=== PATIENT | male | born 1940 | race African-American/Black ===

== ENCOUNTER 2018-01-07 11:03 | Outpatient (CLI) | payer MEDICARE, MEDICAID | END 2018-01-07 11:04 | disposition home or self-care (01) | LOC: BICRAD 11:03 | PROVIDERS: ATTEND Nurse Practitioner Family | DX: M25.512 Pain in left shoulder (principal) ==

== ENCOUNTER 2019-12-10 13:14 | Outpatient (CLI) | payer MEDICARE, MEDICAID ==
--- NOTE | 2019-12-10 14:19 | BD ---
DEXA BONE DENSITY SCAN: DATE: 12/10/2019. COMPARISON: None. HISTORY: 79-year-old male undergoing assessment for osteopenia, history of rheumatoid arthritis. FINDINGS: Lumbar Spine: BMD (g/cm2) L1 1.258 T-Score: 1.7 L2 1.242 T-Score: 1.3 L3 1.333 T-Score: 2.1 L4 1.403 T-Score: 2.8 L1-L4 1.310 T-Score: 2.0 Femoral Neck: 0.924 T-Score: 0.0 Total Femur: 1.173 T-Score: 0.9 The FRAX-WHO fracture risk assessment tool is not reported as T-scores or are at or above -1.0 IMPRESSION: Normal bone mineral density examination. Transcribed Date/Time: 12/10/2019 2:42 PM
--- NOTE | 2019-12-10 14:28 | RAD ---
LEFT HIP TWO VIEWS: 12/10/19 HISTORY: Hip pain for the past five days. Minimal osteophytic change along the acetabulum without any significant joint space narrowing. Vascul ar calcifications are present. No fractures. Arthritic changes of the lower lumbar spine is seen. IMPRESSION: Minimal arthritic changes of the hip. POS: TPC
--- NOTE | 2019-12-10 14:30 | RAD ---
AP PELVIS: 12/10/19 HISTORY: Pelvic and left hip pain for the past five days. No history of fracture. 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 Pelvic ring is intact. F airly minimal arthritic changes of both hips. Vascular calcifications and prostatic calcifications ar e noted. IMPRESSION: No acute findings. 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 POS: TPC
--- NOTE | 2019-12-10 14:34 | RAD ---
PA AND LATERAL VIEWS OF THE CHEST: 12/10/19 HISTORY: Hypertension. FINDINGS: The heart size is normal. The aorta is tortuous. There is a left sided pacemaker. The lungs are well expanded without lobar consolidation, pneumothoraces, or pleural effusions. No acute osseous abnormal ities are seen. IMPRESSION: No radiographic evidence of acute cardiopulmonary process. POS: OFF
== END 2019-12-10 13:15 | disposition home or self-care (01) ==
LOC: BICULT 13:14 → BICMAMMO 13:15
PROVIDERS: ATTEND Family Medicine
DX: M85.80 Other specified disorders of bone density and structure, unspecified site (principal); I25.10 Atherosclerotic heart disease of native coronary artery without angina pectoris; I48.20 Chronic atrial fibrillation, unspecified; M16.0 Bilateral primary osteoarthritis of hip; M48.8X6 Other specified spondylopathies, lumbar region; M25.552 Pain in left hip; R16.0 Hepatomegaly, not elsewhere classified
CPT/HCPCS: 71046; 72170; 77080

== ENCOUNTER 2020-02-29 15:16 | Emergency (ER) | payer MEDICARE, MEDICAID | END 2020-02-29 16:06 | disposition home or self-care (01) | LOC: ERS 15:16 | DX: R50.9 Fever, unspecified (principal); E11.9 Type 2 diabetes mellitus without complications; I10 Essential (primary) hypertension; Z79.899 Other long term (current) drug therapy | CPT/HCPCS: 51798; 99214; 99283; G0463 ==

== ENCOUNTER 2020-03-24 18:01 | Emergency (ER) | payer MEDICARE, OTHER ==
[2020-03-24 19:43] LABS: Bilirubin Negative (Negative); Blood, Urine 3+ (Negative); Clarity Extra Turbid (Clear); Glucose, Urine (Dipstick) Normal (Negative); Leukocyte 25 Leu/uL (Negative); Nitrite Negative (Negative); Protein, Urine (Dipstick) 100 mg/dL (Neg-Trace); RBC/HPF Greater than 50 HPF (0-3); Squamous Epithelial None Seen HPF (0-3); Urobilinogen Normal mg/dL (Less than 2)
[2020-03-24 19:51] LABS: Bacteria/HPF None Seen HPF (None Seen)
== END 2020-03-24 20:11 | disposition home or self-care (01) ==
LOC: ERS 18:01
DX: T83.091A Other mechanical complication of indwelling urethral catheter, initial encounter (principal); E11.9 Type 2 diabetes mellitus without complications; I10 Essential (primary) hypertension; Z79.899 Other long term (current) drug therapy
CPT/HCPCS: 51702; 81003; 81015

== ENCOUNTER 2020-04-15 08:05 | Outpatient (CLI) | payer MEDICARE, MEDICAID, OTHER ==
[2020-04-15 18:07] LABS: Hemoglobin 11.6 g/dL (14.0-18.0); Mean Corpuscular Hemoglobin 21.4 pg (27.0-31.0); Mean Corpuscular Volume 69.3 fL (78.0-98.0); Mean Platelet Volume 10.1 fL (7.4-10.4); Platelet Count 196 thou/uL (130-400); RBC Distribution Width 15.5 % (11.5-14.5); Red Blood Cell (RBC) Count 5.42 mill/uL (4.70-6.10); White Blood Cell (WBC) Count 7.1 thou/uL (4.8-10.8)
[2020-04-15 18:16] LABS: Bacteria/HPF None Seen HPF (None Seen); Bilirubin Negative (Negative); Blood, Urine 1+ (Negative); Calcium Oxalate Crystals 3+ HPF (None Seen); Clarity Clear (Clear); Glucose, Urine (Dipstick) Normal (Negative); Leukocyte 500 Leu/uL (Negative); Nitrite Negative (Negative); Protein, Urine (Dipstick) 20 mg/dL (Neg-Trace); Squamous Epithelial 0-3 HPF (0-3); Urobilinogen Normal mg/dL (Less than 2); WBC/HPF 21-50 HPF (0-3)
[2020-04-15 18:18] LABS: Anion Gap 9 mmol/L (10-20); BUN (Urea Nitrogen) 15 mg/dL (8.4-25.7); Calc. Creatinine Clearance 0 mL/min (70-130); Calcium 9.8 mg/dL (7.8-10.44); Carbon Dioxide 24 mmol/L (23-31); Chloride 109 mmol/L (98-107); Estimated GFR-MDRD 72; Glucose 87 mg/dL (83-110); Potassium 3.8 mmol/L (3.5-5.1); Sodium 138 mmol/L (136-145)
[2020-04-16 11:34] LABS: SARS-CoV-2 MS2 Positive; SARS-CoV-2 N Gene Negative; SARS-CoV-2 S Gene Negative; SARS-CoV-2 orf1ab Negative
== END 2020-04-15 08:06 | disposition home or self-care (01) ==
LOC: LABBT 08:05
PROVIDERS: ATTEND Urology
DX: Z01.812 Encounter for preprocedural laboratory examination (principal); Z11.59 Encounter for screening for other viral diseases; N40.0 Benign prostatic hyperplasia without lower urinary tract symptoms
CPT/HCPCS: 80048; 81001; 85027; 87086; U0003; 87635

== ENCOUNTER 2020-04-19 09:21 | Observation (INO) | payer MEDICARE, MEDICAID ==
[2020-04-14 13:41] VITALS: BMI 31.0
[2020-04-19] MEDS ORDERED: Levofloxacin 500 mg/D5W 100 ml Premix Bag ONE (10:13)
[2020-04-19] MEDS ORDERED: Fentanyl 100 MCG/2 ML VIAL ONE (10:46)
[2020-04-19] MEDS ORDERED: Ondansetron PF 4 MG/2 ML Vial ONE (11:03)
[2020-04-19] MEDS ORDERED: Lidocaine 1% PF 5 ML VIAL ONE (11:03)
[2020-04-19] MEDS ORDERED: PROPOFOL 200 MG/20 ML VIAL ONE (11:03)
[2020-04-19] MEDS ORDERED: Glycopyrrolate 0.2 MG/ML 5 ML SYRINGE ONE (11:03)
[2020-04-19] MEDS ORDERED: Rocuronium Bromide 10 MG/ML (10ML VIAL) ONE (11:03)
[2020-04-19] MEDS ORDERED: Succinylcholine Chloride 20 MG/ML 10 ml SYRINGE FS ONE (11:03)
[2020-04-19] MEDS ORDERED: Meperidine HCl/PF 25 MG/ML VIAL ONE (12:49)
[2020-04-19] MEDS ORDERED: Ondansetron PF 4 MG/2 ML Vial IVP PRN (13:29)
[2020-04-19] MEDS ORDERED: Acetaminophen 500 MG TAB PO PRN (13:29)
[2020-04-19] MEDS ORDERED: hydrALAZINE 20 MG/ML VIAL SLOW IVP PRN (13:29)
[2020-04-19] MEDS ORDERED: HYDROcodone/Acetaminophen 5/325 mg Tablet PO PRN (13:29)
[2020-04-19] MEDS ORDERED: diphenhydrAMINE 50 MG/ML VIAL IVP PRN (13:29)
[2020-04-19] MEDS ORDERED: Morphine 2 MG/ML SYRINGE SLOW IVP PRN (13:29)
[2020-04-19] MEDS ORDERED: Zolpidem Tartrate 5 MG TAB PO PRN (13:29)
--- NOTE | 2020-04-19 14:54 | OP ---
DATE OF PROCEDURE: 04/19/2020 PREOPERATIVE DIAGNOSIS: Enlarged prostate with lower urinary tract symptoms. POSTOPERATIVE DIAGNOSIS: Enlarged prostate with lower urinary tract symptoms. PROCEDURE PERFORMED: Transurethral resection of the prostate. ANESTHESIA: General. COMPLICATIONS: None. ESTIMATED BLOOD LOSS: Minimal. SPECIMENS: Prostate chips. DESCRIPTION OF PROCEDURE: After informed consent, the patient was taken to the operating room, transferred to the table under his own power. Anesthesia was established. A time-out was performed, showing the correct patient, site, and procedure. Preoperative antibiotics were administered. He was prepped and draped in the lithotomy position. I began by inserting the rigid resectoscope through the urethra noting normal course and caliber of the urethra down to the prostate noting large coapting lateral lobes and a high bladder neck. The bladder was systematically examined noting no mucosal abnormalities with [id number] trabeculation. Both ureters were normal in appearance. I began by resecting the bladder neck and posterior midline portion of the prostate from the bladder neck all the way back to the verumontanum. I then resected the left lobe from about 2 o'clock down to the midline and then the right lobe from 10 o'clock to midline. Finally, the anterior resecting tissue was removed. The Weimob evacuator was used to retrieve all prostate chips. The bladder was then reinspected noting no further prostate chips, and both ureters normal in appearance, uninvolved with resection. The prostatic fossa was reexamined and meticulous hemostasis was achieved. The scope was then withdrawn and a 22-German three-way catheter placed with 30 mL instilled in the balloon. This was connected to continuous irrigation, which was running clear at the end of the case. He was then awoken from anesthesia, transferred back to his hospital bed and taken to the PACU in stable condition, where he will be admitted overnight. Job ID: [id number]
[2020-04-19] MEDS ORDERED: Non-Formulary Item 1 EACH (Insulin Glargine,Hum.Rec.Anlog [Toujeo Solostar] 10 UNITS) SQ SCH (21:00)
[2020-04-19] MEDS ORDERED: Insulin Glargine 10 UNITS in Pre-Filled Syringe 1 EACH SC SCH (21:00)
[2020-04-19] MEDS: Oxybutynin 5 MG TAB PO PRN (21:13)
[2020-04-19] MEDS: Dronedarone HCl 400 MG TAB PO SCH (21:13)
[2020-04-19] MEDS: Famotidine/PF 20 mg/2ml Vial SLOW IVP SCH (21:13)
[2020-04-19] MEDS: Docusate 100 MG CAP PO SCH (21:13)
[2020-04-20] MEDS: Sodium Chloride 0.9% 1,000 ML IV SCH ×2 (03:36→06:07)
[2020-04-20] MEDS: Oxybutynin 5 MG TAB PO PRN (06:09)
[2020-04-20 08:11] VITALS: BP 130/68; TEMP 98.9
[2020-04-20] MEDS: Dronedarone HCl 400 MG TAB PO SCH (08:50)
[2020-04-20] MEDS: Famotidine/PF 20 mg/2ml Vial SLOW IVP SCH (08:50)
[2020-04-20] MEDS: Docusate 100 MG CAP PO SCH (08:50)
[2020-04-20] MEDS ORDERED: Amlodipine 10 MG TAB PO SCH (09:00)
[2020-04-20] MEDS ORDERED: Lisinopril 10 MG TAB PO SCH (09:00)
--- NOTE | 2020-04-20 14:44 | DIS ---
DATE OF ADMISSION: 04/19/2020 DATE OF DISCHARGE: 04/20/2020 CHIEF COMPLAINT: Urinary symptoms. FINAL DIAGNOSES: 1. Enlarged prostate with lower urinary tract symptoms. 2. Diabetes, type 2. HOSPITAL COURSE: The patient underwent an uncomplicated transurethral resection of the prostate. He was managed with CBI overnight. The following morning, CBI was turned off with urine remaining clear. He is having no discomfort, and tolerating oral intake. He was deemed stable for discharge home at that point. DISCHARGE ACTIVITY: As tolerated. DISCHARGE MEDICATIONS: Resume home medications except for Eliquis, which will be determined at his followup appointment. Specific postop medications include Bactrim, oxybutynin, tramadol, and ibuprofen. FOLLOWUP PLAN: Next Saturday for void trial. Job ID: [id number]
== END 2020-04-20 09:55 | disposition home or self-care (01) ==
LOC: SDC 09:21 → SURG A 11:00 → SDC 13:30
PROVIDERS: ADMIT Urology; ATTEND Urology
PROC: 0VT08ZZ Resection of Prostate, Via Natural or Artificial Opening Endoscopic (ICD-10-PCS; principal; 2020-04-19)
DX: N40.1 Benign prostatic hyperplasia with lower urinary tract symptoms (principal); R35.1 Nocturia; R33.8 Other retention of urine; R35.0 Frequency of micturition; R39.15 Urgency of urination; R39.12 Poor urinary stream; N41.0 Acute prostatitis; N41.1 Chronic prostatitis; N32.89 Other specified disorders of bladder; E11.9 Type 2 diabetes mellitus without complications; I48.91 Unspecified atrial fibrillation; M19.90 Unspecified osteoarthritis, unspecified site; I51.9 Heart disease, unspecified; Z79.4 Long term (current) use of insulin; Z79.899 Other long term (current) drug therapy; Z91.013 Allergy to seafood
CPT/HCPCS: 36416; 86850; 86900; 86901; 88305; 96361; 96374; 96375; 96376; G0378; J0360; J1815; J1956; J2001; J2175; J2405; J2704; J3010; S0028

== ENCOUNTER 2021-05-02 15:28 | Inpatient (IN) | payer MEDICARE, MEDICAID ==
[2021-05-02 16:22] LABS: #Eosinphils 0.1 thou/uL (0.0-0.7); #Monocytes 1.5 thou/uL (0.11-0.59); #Neutrophils 7.1 thou/uL (1.40-6.50); %Basophils 0.3 % (0.0-1.0); %Eosinophils 0.6 % (0.0-10.0); %Lymphocytes 18.9 % (21.0-51.0); %Monocytes 13.7 % (0.0-10.0); %Neutrophils 66.5 % (42.0-75.0); Hemoglobin 7.4 g/dL (14.0-18.0); Mean Corpuscular HGB CONC 27.6 g/dL (32.0-36.0); Mean Corpuscular Hemoglobin 16.5 pg (27.0-31.0); Mean Corpuscular Volume 59.7 fL (78.0-98.0); Mean Platelet Volume 9.8 fL (7.4-10.4); Platelet Count 224 thou/uL (130-400); RBC Distribution Width 21.9 % (11.5-14.5); White Blood Cell (WBC) Count 10.7 thou/uL (4.8-10.8)
[2021-05-02 16:44] LABS: ALT (SGPT) 13 U/L (8-55); AST (SGOT) 14 U/L (5-34); Albumin 3.4 g/dL (3.4-4.8); Alkaline Phosphatase 49 U/L (40-110); Anion Gap 14 mmol/L (10-20); BUN (Urea Nitrogen) 21 mg/dL (8.4-25.7); Bilirubin, Total 0.7 mg/dL (0.2-1.2); Calc. Creatinine Clearance 0 mL/min (70-130); Calcium 9.5 mg/dL (7.8-10.44); Carbon Dioxide 19 mmol/L (23-31); Chloride 109 mmol/L (98-107); Globulin 4.6 g/dL (2.4-3.5); Glucose 137 mg/dL (83-110); Potassium 3.9 mmol/L (3.5-5.1); Sodium 138 mmol/L (136-145)
[2021-05-02 16:48] LABS: Hypochromia MODERATE=16-30 cells (100X) (0-5/hpf); MDiff Complete? YES; Microcytosis SLIGHT = 6-15 cells (100X) (0-5/hpf); Platelet Morphology Comment Appears Adequate; Reflex for Review?? NO
[2021-05-02 17:19] LABS: Bacteria/HPF 4+ HPF (None Seen); Bilirubin Negative (Negative); Blood, Urine 3+ (Negative); Clarity Extra Turbid (Clear); Glucose, Urine (Dipstick) Normal (Negative); Ketone, Urine Negative (Negative); Leukocyte 500 Leu/uL (Negative); Nitrite Negative (Negative); Protein, Urine (Dipstick) 100 mg/dL (Neg-Trace); RBC/HPF Greater than 50 HPF (0-3); Specific Gravity, Urine 1.015 (1.002-1.036); Squamous Epithelial 0-3 HPF (0-3); Urobilinogen Normal mg/dL (Less than 2); WBC/HPF Greater than 50 HPF (0-3); pH, Urine 5.5 (5.0-9.0)
[2021-05-02] MEDS ORDERED: cefTRIAXone\\ROCEPHIN 1 GM VIAL ONE (17:58)
[2021-05-02] MEDS ORDERED: Vancomycin 1 GM/200 ML BAG ONE (17:58)
[2021-05-02 20:02] LABS: Lactic Acid 1.9 mmol/L (0.5-2.2)
[2021-05-02] MEDS ORDERED: Ondansetron ODT 4 MG TAB PO PRN (20:47)
[2021-05-02] MEDS ORDERED: Dextrose 50% Abboject 50 ML SYRINGE SLOW IVP PRN (20:47)
[2021-05-02] MEDS ORDERED: Acetaminophen 500 MG TAB PO PRN (20:47)
[2021-05-02] MEDS ORDERED: HumaLOG 300 UNITS/3 ML VIAL SC PRN ×2 (20:47)
[2021-05-02] MEDS ORDERED: Ondansetron PF 4 MG/2 ML Vial IVP PRN (20:47)
[2021-05-02] MEDS ORDERED: Dextrose 5% in Water 1,000 ML IV PRN (20:47)
[2021-05-02] MEDS ORDERED: hydrALAZINE 20 MG/ML VIAL SLOW IVP PRN (20:47)
[2021-05-02 20:48] VITALS: BMI 31.6
[2021-05-02] MEDS ORDERED: Tamsulosin HCl 0.4 MG CAP PO SCH (21:00)
[2021-05-02] MEDS: Dronedarone HCl 400 MG TAB PO SCH (22:20)
[2021-05-02] MEDS: Sodium Chloride 0.9% 1,000 ML IV SCH ×2 (22:21→22:27)
[2021-05-03] MEDS: Sodium Chloride 0.9% 1,000 ML IV SCH ×3 (04:36→23:04)
[2021-05-03 06:36] LABS: Reticulocyte Count 1.7 % (0.5-1.5)
[2021-05-03 06:55] LABS: ALT (SGPT) 11 U/L (8-55); AST (SGOT) 17 U/L (5-34); Alkaline Phosphatase 43 U/L (40-110); Anion Gap 14 mmol/L (10-20); BUN (Urea Nitrogen) 17 mg/dL (8.4-25.7); Bilirubin, Total 1.4 mg/dL (0.2-1.2); Calc. Creatinine Clearance 60 mL/min (70-130); Calcium 8.9 mg/dL (7.8-10.44); Carbon Dioxide 19 mmol/L (23-31); Chloride 111 mmol/L (98-107); Globulin 4.1 g/dL (2.4-3.5); Glucose 109 mg/dL (83-110); Iron 69 ug/dL (65-175); Potassium 3.5 mmol/L (3.5-5.1); Protein, Total 7.1 g/dL (5.8-8.1); Sodium 140 mmol/L (136-145)
[2021-05-03 06:57] LABS: #Eosinphils 0.2 thou/uL (0.0-0.7); #Lymphocytes 1.6 thou/uL (1.20-3.40); #Monocytes 1.3 thou/uL (0.11-0.59); #Neutrophils 7.3 thou/uL (1.40-6.50); %Basophils 0.2 % (0.0-1.0); %Lymphocytes 15.5 % (21.0-51.0); %Monocytes 12.2 % (0.0-10.0); %Neutrophils 70.2 % (42.0-75.0); Anisocytosis MODERATE=16-30 cells (100X) (0-5/hpf); Elliptocytes SLIGHT = 2-5 cells (100X) (0-1/hpf); Hemoglobin 7.4 g/dL (14.0-18.0); Hypochromia SLIGHT = 6-15 cells (100X) (0-5/hpf); Large Platelets SLIGHT; MDiff Complete? YES; Mean Corpuscular HGB CONC 29.5 g/dL (32.0-36.0); Mean Corpuscular Hemoglobin 17.8 pg (27.0-31.0); Mean Corpuscular Volume 60.1 fL (78.0-98.0); Mean Platelet Volume 8.3 fL (7.4-10.4); Microcytosis SLIGHT = 6-15 cells (100X) (0-5/hpf); Platelet Count 196 thou/uL (130-400); Platelet Morphology Comment Appears Adequate; RBC Distribution Width 24.6 % (11.5-14.5); Red Blood Cell (RBC) Count 4.16 mill/uL (4.70-6.10); Target Cells SLIGHT = 2-5 cells (100X) (0-1/hpf); White Blood Cell (WBC) Count 10.4 thou/uL (4.8-10.8)
[2021-05-03] MEDS ORDERED: Finasteride 5 MG TAB PO SCH (09:00)
[2021-05-03] MEDS: Amlodipine 10 MG TAB PO SCH (09:14)
[2021-05-03] MEDS: Dronedarone HCl 400 MG TAB PO SCH ×2 (09:14→20:25)
[2021-05-03] MEDS: cefTRIAXone\\ROCEPHIN 2 GM in Sodium Chloride 0.9% 100 ML IVPB SCH (17:03)
[2021-05-04 06:20] LABS: Anion Gap 11 mmol/L (10-20); BUN (Urea Nitrogen) 14 mg/dL (8.4-25.7); Calc. Creatinine Clearance 61 mL/min (70-130); Carbon Dioxide 21 mmol/L (23-31); Chloride 114 mmol/L (98-107); Glucose 99 mg/dL (83-110); Potassium 3.5 mmol/L (3.5-5.1); Sodium 142 mmol/L (136-145)
[2021-05-04 06:55] LABS: Anisocytosis MODERATE=16-30 cells (100X) (0-5/hpf); Band 10 % (5-11); Elliptocytes SLIGHT = 2-5 cells (100X) (0-1/hpf); Eosinophils 3 % (0-10); Hemoglobin 7.4 g/dL (14.0-18.0); Hypochromia MODERATE=16-30 cells (100X) (0-5/hpf); Lymphocytes 20 % (21-51); MDiff Complete? YES; Mean Corpuscular HGB CONC 29.9 g/dL (32.0-36.0); Mean Corpuscular Hemoglobin 18.4 pg (27.0-31.0); Mean Corpuscular Volume 61.4 fL (78.0-98.0); Mean Platelet Volume 8.9 fL (7.4-10.4); Monocytes 8 % (0-10); Neutrophil 59 % (42-75); Platelet Count 210 thou/uL (130-400); Red Blood Cell (RBC) Count 4.03 mill/uL (4.70-6.10); White Blood Cell (WBC) Count 9.1 thou/uL (4.8-10.8)
[2021-05-04] MEDS: Amlodipine 10 MG TAB PO SCH (09:19)
[2021-05-04] MEDS: Dronedarone HCl 400 MG TAB PO SCH ×2 (09:20→20:26)
[2021-05-04] MEDS ORDERED: traMADol HCl 50 MG TAB PO PRN (11:02)
[2021-05-04] MEDS: Ferrous Sulfate 325 MG TAB PO SCH (17:08)
[2021-05-04] MEDS: cefTRIAXone\\ROCEPHIN 2 GM in Sodium Chloride 0.9% 100 ML IVPB SCH (17:09)
[2021-05-04] MEDS: Sodium Chloride 0.9% 1,000 ML IV SCH ×2 (20:26)
[2021-05-04] MEDS ORDERED: Lantus 1000 UNITS/10 ML VIAL SC SCH (21:00)
[2021-05-05 07:48] LABS: Hemoglobin 7.8 g/dL (14.0-18.0)
[2021-05-05] MEDS: Amlodipine 10 MG TAB PO SCH (08:44)
[2021-05-05] MEDS: Dronedarone HCl 400 MG TAB PO SCH (08:44)
[2021-05-05] MEDS: Ferrous Sulfate 325 MG TAB PO SCH (08:45)
[2021-05-05 14:42] VITALS: BP 155/70; TEMP 97.9
== END 2021-05-05 14:27 | disposition home or self-care (01) | DRG 812 ==
LOC: ERS 15:28 → T4-B 18:22
PROVIDERS: ADMIT Family Medicine; ATTEND Internal Medicine
PROC: 30233N1 Transfusion of Nonautologous Red Blood Cells into Peripheral Vein, Percutaneous Approach (ICD-10-PCS; principal; 2021-05-02)
DX: D50.9 Iron deficiency anemia, unspecified (principal); N39.0 Urinary tract infection, site not specified; N17.9 Acute kidney failure, unspecified; E11.9 Type 2 diabetes mellitus without complications; I10 Essential (primary) hypertension; E78.5 Hyperlipidemia, unspecified; N40.0 Benign prostatic hyperplasia without lower urinary tract symptoms; B96.20 Unspecified Escherichia coli [E. coli] as the cause of diseases classified elsewhere; I48.0 Paroxysmal atrial fibrillation; Z95.0 Presence of cardiac pacemaker; Z91.013 Allergy to seafood; Z79.01 Long term (current) use of anticoagulants
CPT/HCPCS: 36415; 36416; 36430; 80048; 80053; 81003; 81015; 82274; 82728; 83540; 83605; 83880; 84484; 85014; 85018; 85025; 85046; 86850; 86900; 86901; 87077; 87086; 87186; 96365; 96375; J0696; J1815; J3370; J3490; P9016

== ENCOUNTER 2024-05-05 04:07 | Inpatient (IN) | payer OTHER ==
[2024-05-05 04:47] VITALS: BMI 25.2
[2024-05-05] MEDS ORDERED: Ondansetron ODT 4 MG TAB PO PRN (06:17)
[2024-05-05] MEDS ORDERED: Acetaminophen 325 MG TAB PO PRN (06:17)
[2024-05-05] MEDS ORDERED: Dextrose 5% in Water 1,000 ML IV PRN (06:41)
[2024-05-05] MEDS ORDERED: Glucagon 1 MG/ML KIT IM PRN (06:41)
[2024-05-05] MEDS ORDERED: Dextrose 50% Abboject 50 ML SYRINGE SLOW IVP PRN (06:41)
[2024-05-05] MEDS ORDERED: HumaLOG 300 UNITS/3 ML VIAL SC PRN ×2 (06:41)
[2024-05-05] MEDS ORDERED: hydrALAZINE 20 MG/ML VIAL SLOW IVP PRN (06:47)
[2024-05-05] MEDS ORDERED: Insulin Lispro 100 UNIT/ML 10 ML VIAL SC PRN ×2 (07:00)
[2024-05-05 08:42] LABS: #Basophils Less than 0.03 10x3/uL (0.0-0.2); #Eosinphils Less than 0.03 10x3/uL (0.0-0.7); %Basophils 0.3 % (0.0-1.0); %Eosinophils 0.5 % (0.0-10.0); %Monocytes 16.3 % (0.0-10.0); %Neutrophils 63.6 % (42.0-75.0); Hemoglobin 11.8 g/dL (14.0-18.0); Mean Corpuscular HGB CONC 31.1 g/dL (32.0-36.0); Mean Corpuscular Hemoglobin 20.1 pg (27.0-31.0); Mean Corpuscular Volume 64.7 fL (78.0-98.0); Platelet Count 144 10x3/uL (130-400); RBC Distribution Width 16.6 % (11.5-14.5); Red Blood Cell (RBC) Count 5.87 mill/uL (4.70-6.10)
[2024-05-05 08:44] LABS: Troponin I 0.062 ng/mL (< 0.028)
[2024-05-05] MEDS: Aspirin 81 mg Enteric Coated Tablet PO SCH (08:52)
[2024-05-05] MEDS: Lactated Ringer's 1,000 ML IV SCH (08:52)
[2024-05-05 09:00] LABS: ALT (SGPT) 6 U/L (8-55); AST (SGOT) 12 U/L (5-34); Albumin 3.2 g/dL (3.4-4.8); Alkaline Phosphatase 47 U/L (40-110); Anion Gap 15 mmol/L (10-20); BUN (Urea Nitrogen) 25 mg/dL (8.4-25.7); Bilirubin, Total 0.8 mg/dL (0.2-1.2); Calc. Creatinine Clearance 37 mL/min (70-130); Calcium 9.9 mg/dL (7.8-10.44); Carbon Dioxide 22 mmol/L (23-31); Cardiac Risk 4.1 (Less than 4.5); Chloride 107 mmol/L (98-107); Cholesterol 118 mg/dl (< 200 Desired); Estimated GFR 40; Globulin 3.6 g/dL (2.4-3.5); Glucose 96 mg/dL (83-110); HDL Cholesterol 29 mg/dL (>60 Neg Risk); LDL Cholesterol, Calculated 78 mg/dL; Potassium 2.7 mmol/L (3.5-5.1); Protein, Total 6.8 g/dL (5.8-8.1); Sodium 141 mmol/L (136-145); Triglycerides 54 mg/dL (Less than 150)
[2024-05-05] MEDS: Potassium Chloride 20 MEQ TAB PO SCH ×2 (12:07→19:28)
[2024-05-05] MEDS: Potassium Chloride 20 MEQ in Premix 1 BAG IVPB SCH (12:08)
[2024-05-05] MEDS: Potassium Chloride 40 MEQ in Premix 1 BAG IVPB SCH (12:17)
[2024-05-05 13:45] LABS: Troponin I 0.051 ng/mL (< 0.028)
[2024-05-05 13:54] LABS: Hemoglobin A1c 5.9 % (4.0-6.0)
[2024-05-05 16:27] LABS: Potassium 3.5 mmol/L (3.5-5.1)
[2024-05-05] MEDS ORDERED: cefTRIAXone\\ROCEPHIN 1 GM in Sodium Chloride 0.9% 100 ML IVPB SCH (21:00)
[2024-05-05] MEDS: Atorvastatin Calcium 40 MG TAB PO SCH (21:11)
[2024-05-05 22:28] LABS: Magnesium 1.7 mg/dL (1.6-2.6)
[2024-05-06] MEDS: Melatonin 3 MG TAB PO SCH (03:58)
[2024-05-06 05:47] LABS: #Basophils Less than 0.03 10x3/uL (0.0-0.2); %Basophils 0.2 % (0.0-1.0); %Eosinophils 0.9 % (0.0-10.0); %Monocytes 16.1 % (0.0-10.0); %Neutrophils 59.6 % (42.0-75.0); Hematocrit 39.2 % (42.0-52.0); Hemoglobin 12.4 g/dL (14.0-18.0); Mean Corpuscular HGB CONC 31.6 g/dL (32.0-36.0); Mean Corpuscular Hemoglobin 20.2 pg (27.0-31.0); Mean Corpuscular Volume 63.8 fL (78.0-98.0); Platelet Count 138 10x3/uL (130-400); RBC Distribution Width 16.6 % (11.5-14.5); Red Blood Cell (RBC) Count 6.14 mill/uL (4.70-6.10)
[2024-05-06 06:11] LABS: ALT (SGPT) 8 U/L (8-55); AST (SGOT) 16 U/L (5-34); Albumin 3.2 g/dL (3.4-4.8); Alkaline Phosphatase 49 U/L (40-110); Anion Gap 15 mmol/L (10-20); BUN (Urea Nitrogen) 18 mg/dL (8.4-25.7); Bilirubin, Total 0.6 mg/dL (0.2-1.2); Calc. Creatinine Clearance 45 mL/min (70-130); Carbon Dioxide 22 mmol/L (23-31); Chloride 104 mmol/L (98-107); Estimated GFR 51; Globulin 3.7 g/dL (2.4-3.5); Glucose 85 mg/dL (83-110); Potassium 3.5 mmol/L (3.5-5.1); Protein, Total 6.9 g/dL (5.8-8.1); Sodium 137 mmol/L (136-145)
[2024-05-06] MEDS: Potassium Chloride 20 MEQ TAB PO SCH (09:58)
[2024-05-06] MEDS: Magnesium Oxide 400 MG TAB PO SCH (21:43)
[2024-05-07 05:34] LABS: Magnesium 1.6 mg/dL (1.6-2.6); Potassium 3.8 mmol/L (3.5-5.1)
[2024-05-07 07:09] LABS: Anion Gap 16 mmol/L (10-20); BUN (Urea Nitrogen) 15 mg/dL (8.4-25.7); Calc. Creatinine Clearance 45 mL/min (70-130); Calcium 10.3 mg/dL (7.8-10.44); Carbon Dioxide 20 mmol/L (23-31); Chloride 104 mmol/L (98-107); Estimated GFR 51; Glucose 94 mg/dL (83-110); Potassium 3.8 mmol/L (3.5-5.1); Sodium 136 mmol/L (136-145)
[2024-05-07] MEDS: Potassium Chloride 20 MEQ TAB PO SCH (12:02)
[2024-05-07] MEDS: Magnesium Oxide 400 MG TAB PO SCH (20:38)
[2024-05-08 06:43] LABS: Anion Gap 16 mmol/L (10-20); BUN (Urea Nitrogen) 16 mg/dL (8.4-25.7); Calc. Creatinine Clearance 45 mL/min (70-130); Carbon Dioxide 19 mmol/L (23-31); Chloride 105 mmol/L (98-107); Estimated GFR 52; Glucose 101 mg/dL (83-110); Magnesium 1.7 mg/dL (1.6-2.6); Potassium 4.7 mmol/L (3.5-5.1); Sodium 135 mmol/L (136-145)
[2024-05-09 06:52] LABS: Anion Gap 11 mmol/L (10-20); BUN (Urea Nitrogen) 18 mg/dL (8.4-25.7); Calc. Creatinine Clearance 48 mL/min (70-130); Calcium 10.3 mg/dL (7.8-10.44); Carbon Dioxide 19 mmol/L (23-31); Chloride 105 mmol/L (98-107); Estimated GFR 56; Glucose 104 mg/dL (83-110); Sodium 131 mmol/L (136-145)
[2024-05-09 08:11] LABS: #Basophils Less than 0.03 10x3/uL (0.0-0.2); %Basophils 0.2 % (0.0-1.0); %Eosinophils 3.7 % (0.0-10.0); %Monocytes 11.2 % (0.0-10.0); %Neutrophils 49.7 % (42.0-75.0); Hemoglobin 12.5 g/dL (14.0-18.0); Mean Corpuscular HGB CONC 31.3 g/dL (32.0-36.0); Mean Corpuscular Hemoglobin 20.2 pg (27.0-31.0); Mean Corpuscular Volume 64.6 fL (78.0-98.0); Platelet Count 161 10x3/uL (130-400); RBC Distribution Width 17.4 % (11.5-14.5); Red Blood Cell (RBC) Count 6.19 mill/uL (4.70-6.10)
[2024-05-09] MEDS: Dronedarone HCl 400 MG TAB PO SCH (09:09)
[2024-05-09] MEDS: Lisinopril 20 MG TAB PO SCH (09:09)
[2024-05-09 09:21] LABS: Anisocytosis SLIGHT = 6-15 cells HPF (0-5); Burr Cells SLIGHT = 2-5 cells HPF (0-1); Elliptocytes SLIGHT = 2-5 cells HPF (0-1); Hypochromia SLIGHT = 6-15 cells HPF (0-5); Microcytosis SLIGHT = 6-15 cells HPF (0-5); Ovalocytes SLIGHT = 2-5 cells HPF (0-1); Platelet Adequacy Comment Platelets Normal; Poikilocytosis SLIGHT = 6-15 cells HPF (0-5); Polychromasia SLIGHT = 2-3 cells HPF (0-2); Target Cells SLIGHT = 2-5 cells HPF (0-1)
[2024-05-10 04:22] LABS: #Basophils Less than 0.03 10x3/uL (0.0-0.2); %Basophils 0.2 % (0.0-1.0); %Eosinophils 3.7 % (0.0-10.0); %Lymphocytes 33.6 % (21.0-51.0); %Monocytes 11.5 % (0.0-10.0); %Neutrophils 50.6 % (42.0-75.0); Hematocrit 39.3 % (42.0-52.0); Hemoglobin 12.4 g/dL (14.0-18.0); Mean Corpuscular HGB CONC 31.6 g/dL (32.0-36.0); Mean Corpuscular Hemoglobin 19.8 pg (27.0-31.0); Mean Corpuscular Volume 62.7 fL (78.0-98.0); Platelet Count 176 10x3/uL (130-400); RBC Distribution Width 16.5 % (11.5-14.5); Red Blood Cell (RBC) Count 6.27 mill/uL (4.70-6.10)
[2024-05-10 04:39] LABS: Anion Gap 13 mmol/L (10-20); BUN (Urea Nitrogen) 21 mg/dL (8.4-25.7); Calc. Creatinine Clearance 44 mL/min (70-130); Calcium 10.2 mg/dL (7.8-10.44); Carbon Dioxide 20 mmol/L (23-31); Chloride 103 mmol/L (98-107); Estimated GFR 50; Glucose 110 mg/dL (83-110); Potassium 3.9 mmol/L (3.5-5.1); Sodium 132 mmol/L (136-145)
[2024-05-10 04:45] LABS: Hypochromia SLIGHT = 6-15 cells HPF (0-5); Microcytosis SLIGHT = 6-15 cells HPF (0-5); Platelet Adequacy Comment Platelets Normal
[2024-05-11 04:18] LABS: Anion Gap 14 mmol/L (10-20); BUN (Urea Nitrogen) 21 mg/dL (8.4-25.7); Calc. Creatinine Clearance 40 mL/min (70-130); Calcium 10.1 mg/dL (7.8-10.44); Carbon Dioxide 15 mmol/L (23-31); Chloride 104 mmol/L (98-107); Estimated GFR 46; Glucose 99 mg/dL (83-110); Potassium 4.3 mmol/L (3.5-5.1); Sodium 129 mmol/L (136-145)
[2024-05-11] MEDS: Sodium Chloride 0.9% 1,000 ML IV SCH (14:21)
[2024-05-11 17:09] LABS: Anion Gap 15 mmol/L (10-20); BUN (Urea Nitrogen) 22 mg/dL (8.4-25.7); Calc. Creatinine Clearance 42 mL/min (70-130); Calcium 10.3 mg/dL (7.8-10.44); Carbon Dioxide 18 mmol/L (23-31); Chloride 104 mmol/L (98-107); Estimated GFR 49; Glucose 93 mg/dL (83-110); Potassium 4.1 mmol/L (3.5-5.1); Sodium 133 mmol/L (136-145)
[2024-05-12 05:13] LABS: Anion Gap 9 mmol/L (10-20); BUN (Urea Nitrogen) 24 mg/dL (8.4-25.7); Calc. Creatinine Clearance 35 mL/min (70-130); Calcium 10.1 mg/dL (7.8-10.44); Carbon Dioxide 22 mmol/L (23-31); Chloride 103 mmol/L (98-107); Estimated GFR 39; Glucose 100 mg/dL (83-110); Potassium 4.1 mmol/L (3.5-5.1); Sodium 130 mmol/L (136-145)
[2024-05-12] MEDS: Clopidogrel Bisulfate 75 MG TAB PO SCH (08:55)
[2024-05-12] MEDS: Sodium Chloride 0.9% 1,000 ML IV SCH (11:10)
[2024-05-13 04:33] LABS: Anion Gap 12 mmol/L (10-20); BUN (Urea Nitrogen) 19 mg/dL (8.4-25.7); Calc. Creatinine Clearance 41 mL/min (70-130); Calcium 10.2 mg/dL (7.8-10.44); Carbon Dioxide 23 mmol/L (23-31); Chloride 107 mmol/L (98-107); Estimated GFR 48; Glucose 83 mg/dL (83-110); Potassium 4.2 mmol/L (3.5-5.1); Sodium 138 mmol/L (136-145)
[2024-05-14 04:55] LABS: Anion Gap 12 mmol/L (10-20); BUN (Urea Nitrogen) 18 mg/dL (8.4-25.7); Calc. Creatinine Clearance 46 mL/min (70-130); Calcium 9.9 mg/dL (7.8-10.44); Carbon Dioxide 20 mmol/L (23-31); Chloride 108 mmol/L (98-107); Estimated GFR 51; Glucose 76 mg/dL (83-110); Potassium 3.7 mmol/L (3.5-5.1); Sodium 136 mmol/L (136-145)
[2024-05-14 15:01] VITALS: BMI 25.4
[2024-05-15] MEDS ORDERED: Aspirin 81 mg Enteric Coated Tablet ONE (09:00)
[2024-05-15] MEDS ORDERED: Lisinopril 20 MG TAB ONE ×2 (09:00)
[2024-05-15] MEDS ORDERED: Clopidogrel Bisulfate 75 MG TAB ONE ×2 (09:00)
[2024-05-15] MEDS ORDERED: Dronedarone HCl 400 MG TAB ONE (09:00)
[2024-05-15] MEDS: Apixaban 2.5 MG TAB PO SCH ×2 (22:51→22:53)
[2024-05-16 06:27] LABS: BUN (Urea Nitrogen) 22 mg/dL (8.4-25.7)
[2024-05-16 06:34] LABS: Anion Gap 14 mmol/L (10-20); Calc. Creatinine Clearance 37 mL/min (70-130); Calcium 10.6 mg/dL (7.8-10.44); Carbon Dioxide 15 mmol/L (23-31); Chloride 107 mmol/L (98-107); Estimated GFR 40; Glucose 64 mg/dL (83-110); Potassium 5.5 mmol/L (3.5-5.1); Sodium 132 mmol/L (136-145)
[2024-05-16] MEDS: Sodium Chloride 0.9% 1,000 ML IV SCH (09:47)
[2024-05-16 15:55] LABS: Anion Gap 12 mmol/L (10-20); BUN (Urea Nitrogen) 21 mg/dL (8.4-25.7); Calc. Creatinine Clearance 42 mL/min (70-130); Calcium 10.7 mg/dL (7.8-10.44); Carbon Dioxide 20 mmol/L (23-31); Chloride 106 mmol/L (98-107); Estimated GFR 46; Glucose 89 mg/dL (83-110); Potassium 4.2 mmol/L (3.5-5.1); Sodium 134 mmol/L (136-145)
[2024-05-16 16:06] VITALS: BP 153/79; TEMP 97.9
== END 2024-05-16 19:50 | DRG 64 ==
LOC: 2NO 04:07 → INTOOBSV 04:07 → OBSVTOIN 05-07 10:02
PROVIDERS: ADMIT Emergency Medicine; ATTEND Emergency Medicine
DX: I63.9 Cerebral infarction, unspecified (principal); I21.A1 Myocardial infarction type 2; U07.1 COVID-19; N17.9 Acute kidney failure, unspecified; E87.1 Hypo-osmolality and hyponatremia; G81.93 Hemiplegia, unspecified affecting right nondominant side; E78.5 Hyperlipidemia, unspecified; I48.0 Paroxysmal atrial fibrillation; F03.90 Unspecified dementia, unspecified severity, without behavioral disturbance, psychotic disturbance, mood disturbance, and anxiety; R29.704 NIHSS score 4; N40.0 Benign prostatic hyperplasia without lower urinary tract symptoms; E86.1 Hypovolemia; D50.9 Iron deficiency anemia, unspecified; E11.22 Type 2 diabetes mellitus with diabetic chronic kidney disease; I12.9 Hypertensive chronic kidney disease with stage 1 through stage 4 chronic kidney disease, or unspecified chronic kidney disease; R94.31 Abnormal electrocardiogram [ECG] [EKG]; R82.81 Pyuria; N18.9 Chronic kidney disease, unspecified; Z91.013 Allergy to seafood; Z95.0 Presence of cardiac pacemaker; Z79.899 Other long term (current) drug therapy; Z79.84 Long term (current) use of oral hypoglycemic drugs; Z72.4 Inappropriate diet and eating habits; Z87.891 Personal history of nicotine dependence
CPT/HCPCS: 36415; 36416; 70551; 80048; 80053; 80061; 83036; 83735; 83930; 84132; 84439; 84443; 84480; 85025; 96374; 96376; G0378; J1815; J3480; J7050; J7120

== ENCOUNTER 2024-09-03 19:25 | Inpatient (IN) | payer OTHER ==
[~2024-09-03 19:25] MED LIST: Iopamidol-370 76% 500 ML MDV (1 ML CHARGE) ONE
[2024-09-03 20:53] LABS: #Basophils Less than 0.03 10x3/uL (0.0-0.2); %Basophils 0.3 % (0.0-1.0); %Eosinophils 0.7 % (0.0-10.0); %Lymphocytes 23.9 % (21.0-51.0); %Monocytes 8.1 % (0.0-10.0); %Neutrophils 66.7 % (42.0-75.0); Hematocrit 32.7 % (42.0-52.0); Hemoglobin 10.4 g/dL (14.0-18.0); Mean Corpuscular HGB CONC 31.8 g/dL (32.0-36.0); Mean Corpuscular Hemoglobin 20.5 pg (27.0-31.0); Mean Corpuscular Volume 64.5 fL (78.0-98.0); Platelet Count 168 10x3/uL (130-400); RBC Distribution Width 16.9 % (11.5-14.5); Red Blood Cell (RBC) Count 5.07 mill/uL (4.70-6.10)
[2024-09-03 21:03] LABS: ALT (SGPT) 15 U/L (8-55); AST (SGOT) 15 U/L (5-34); Albumin 2.9 g/dL (3.4-4.8); Alkaline Phosphatase 56 U/L (40-110); Anion Gap 10 mmol/L (10-20); BUN (Urea Nitrogen) 11 mg/dL (8.4-25.7); Bilirubin, Total 0.9 mg/dL (0.2-1.2); CK (CPK) 82 U/L (30-200); Calc. Creatinine Clearance 0 mL/min (70-130); Calcium 9.9 mg/dL (7.8-10.44); Carbon Dioxide 24 mmol/L (23-31); Chloride 105 mmol/L (98-107); Estimated GFR 67; Globulin 3.5 g/dL (2.4-3.5); Glucose 95 mg/dL (83-110); Lipase 12 U/L (8-78); Potassium 3.3 mmol/L (3.5-5.1); Protein, Total 6.4 g/dL (5.8-8.1); Sodium 136 mmol/L (136-145)
[2024-09-04] MEDS: Sodium Chloride 0.9% 1,000 ML IV SCH (01:34)
[2024-09-04] MEDS: Azithromycin 500 MG in Sodium Chloride 0.9% 250 ML 250 ML IVPB SCH (03:35)
[2024-09-04] MEDS ORDERED: Dextrose 5% in Water 1,000 ML IV PRN (04:06)
[2024-09-04] MEDS ORDERED: Glucagon 1 MG/ML KIT IM PRN (04:06)
[2024-09-04] MEDS ORDERED: Insulin Lispro 100 UNIT/ML 10 ML VIAL SC PRN (04:06)
[2024-09-04] MEDS ORDERED: Dextrose 50% Abboject 50 ML SYRINGE SLOW IVP PRN (04:06)
[2024-09-04 05:28] LABS: Anion Gap 13 mmol/L (10-20); BUN (Urea Nitrogen) 10 mg/dL (8.4-25.7); Calc. Creatinine Clearance 0 mL/min (70-130); Calcium 9.8 mg/dL (7.8-10.44); Carbon Dioxide 26 mmol/L (23-31); Chloride 104 mmol/L (98-107); Estimated GFR 63; Glucose 81 mg/dL (83-110); Potassium 3.5 mmol/L (3.5-5.1); Sodium 139 mmol/L (136-145)
[2024-09-04] MEDS: Ampicillin/Sulbactam 3 GM in Sodium Chloride 0.9% 100 ML IVPB SCH (05:38)
[2024-09-04 05:49] LABS: #Basophils Less than 0.03 10x3/uL (0.0-0.2); %Basophils 0.3 % (0.0-1.0); %Eosinophils 1.7 % (0.0-10.0); %Lymphocytes 21.5 % (21.0-51.0); %Monocytes 9.6 % (0.0-10.0); %Neutrophils 66.7 % (42.0-75.0); Hematocrit 31.5 % (42.0-52.0); Hemoglobin 9.8 g/dL (14.0-18.0); Mean Corpuscular HGB CONC 31.1 g/dL (32.0-36.0); Mean Corpuscular Hemoglobin 20.3 pg (27.0-31.0); Mean Corpuscular Volume 65.4 fL (78.0-98.0); Platelet Count 207 10x3/uL (130-400); Red Blood Cell (RBC) Count 4.82 mill/uL (4.70-6.10)
[2024-09-04 07:47] VITALS: BMI 20.2
[2024-09-04] MEDS: Apixaban 2.5 MG TAB PO SCH ×2 (10:44→20:13)
[2024-09-04] MEDS: Dextrose 5 % And 0.9 % NaCl 1,000 ML IV SCH (13:06)
[2024-09-04 14:03] LABS: Bacteria/HPF None Seen HPF (None Seen); Bilirubin Negative (Negative); Blood, Urine Negative (Negative); CAUTI Indications for Culture Alt mental st,lethar; Clarity Clear (Clear); Glucose, Urine (Dipstick) Normal (Negative); Ketone, Urine Negative (Negative); Leukocyte Negative Leu/uL (Negative); Nitrite Negative (Negative); Protein, Urine (Dipstick) Negative (Neg-Trace); RBC/HPF 0-3 HPF (0-3); Squamous Epithelial 0-3 HPF (0-3); WBC/HPF 0-3 HPF (0-3)
[2024-09-04 14:18] LABS: Urine Culture Reflex No No
[2024-09-04] MEDS: Senokot S 8.6-50 MG TAB PO SCH (20:12)
[2024-09-04] MEDS: Thiamine 100 MG TAB PO SCH (20:13)
[2024-09-04] MEDS: Amiodarone 200 MG TAB PO SCH (20:13)
[2024-09-04] MEDS: Multivit, Therapeutic 1 TAB PO SCH (20:13)
[2024-09-04] MEDS: QUEtiapine 25 MG TAB PO SCH (20:13)
[2024-09-05] MEDS: Folic Acid 1 MG TAB PO SCH (08:13)
[2024-09-05] MEDS: Clopidogrel Bisulfate 75 MG TAB PO SCH (08:14)
[2024-09-05] MEDS: Atorvastatin Calcium 40 MG TAB PO SCH (08:14)
[2024-09-05] MEDS: Pantoprazole DR 40 MG TAB PO SCH (11:50)
[2024-09-05 13:46] LABS: #Basophils Less than 0.03 10x3/uL (0.0-0.2); %Basophils 0.4 % (0.0-1.0); %Eosinophils 1.8 % (0.0-10.0); %Lymphocytes 27.5 % (21.0-51.0); %Monocytes 8.3 % (0.0-10.0); %Neutrophils 61.3 % (42.0-75.0); Hematocrit 34.3 % (42.0-52.0); Hemoglobin 10.7 g/dL (14.0-18.0); Mean Corpuscular HGB CONC 31.2 g/dL (32.0-36.0); Mean Corpuscular Hemoglobin 20.1 pg (27.0-31.0); Mean Corpuscular Volume 64.5 fL (78.0-98.0); Platelet Count 164 10x3/uL (130-400); RBC Distribution Width 17.1 % (11.5-14.5); Red Blood Cell (RBC) Count 5.32 mill/uL (4.70-6.10)
[2024-09-05 13:51] LABS: ALT (SGPT) 15 U/L (8-55); AST (SGOT) 17 U/L (5-34); Albumin 2.8 g/dL (3.4-4.8); Alkaline Phosphatase 57 U/L (40-110); Anion Gap 14 mmol/L (10-20); BUN (Urea Nitrogen) 7 mg/dL (8.4-25.7); Bilirubin, Total 1.2 mg/dL (0.2-1.2); Calc. Creatinine Clearance 45 mL/min (70-130); Calcium 9.7 mg/dL (7.8-10.44); Carbon Dioxide 22 mmol/L (23-31); Chloride 108 mmol/L (98-107); Estimated GFR 66; Globulin 3.7 g/dL (2.4-3.5); Glucose 76 mg/dL (83-110); Lipase 9 U/L (8-78); Magnesium 1.7 mg/dL (1.6-2.6); Potassium 3.1 mmol/L (3.5-5.1); Protein, Total 6.5 g/dL (5.8-8.1); Sodium 141 mmol/L (136-145)
[2024-09-05] MEDS ORDERED: Electrolyte Replacement Protocol FS SCH (15:45)
[2024-09-05] MEDS ORDERED: Magnesium 2 GM/50 ML(in water) 4 GM in Premix 1 BAG IVPB SCH (15:45)
[2024-09-05] MEDS: Magnesium Sulfate In Water 4 GM in Premix 1 BAG IVPB SCH (16:38)
[2024-09-05] MEDS: Potassium Chloride 20 MEQ TAB PO SCH (16:38)
[2024-09-06 05:08] LABS: Anion Gap 7 mmol/L (10-20); BUN (Urea Nitrogen) 6 mg/dL (8.4-25.7); Calc. Creatinine Clearance 42 mL/min (70-130); Calcium 8.8 mg/dL (7.8-10.44); Carbon Dioxide 26 mmol/L (23-31); Chloride 111 mmol/L (98-107); Estimated GFR 61; Glucose 90 mg/dL (83-110); Magnesium 2.3 mg/dL (1.6-2.6); Potassium 2.9 mmol/L (3.5-5.1); Sodium 141 mmol/L (136-145)
[2024-09-06 05:09] LABS: #Basophils Less than 0.03 10x3/uL (0.0-0.2); %Basophils 0.5 % (0.0-1.0); %Eosinophils 2.9 % (0.0-10.0); %Monocytes 10.1 % (0.0-10.0); %Neutrophils 56.3 % (42.0-75.0); Hematocrit 28.1 % (42.0-52.0); Hemoglobin 8.8 g/dL (14.0-18.0); Mean Corpuscular HGB CONC 31.3 g/dL (32.0-36.0); Mean Corpuscular Hemoglobin 20.4 pg (27.0-31.0); Platelet Count 195 10x3/uL (130-400); RBC Distribution Width 16.6 % (11.5-14.5); Red Blood Cell (RBC) Count 4.32 mill/uL (4.70-6.10)
[2024-09-06] MEDS ORDERED: Potassium Chloride 20 MEQ TAB PO SCH (08:00)
[2024-09-06] MEDS: Potassium Bicarbonate/Cit Ac 20 MEQ TAB PO SCH (08:31)
[2024-09-06] MEDS: Pantoprazole DR 40 MG TAB PO SCH (08:33)
[2024-09-07 06:19] LABS: Anion Gap 12 mmol/L (10-20); BUN (Urea Nitrogen) 6 mg/dL (8.4-25.7); Calc. Creatinine Clearance 44 mL/min (70-130); Calcium 8.9 mg/dL (7.8-10.44); Carbon Dioxide 20 mmol/L (23-31); Chloride 112 mmol/L (98-107); Estimated GFR 65; Glucose 93 mg/dL (83-110); Magnesium 2.1 mg/dL (1.6-2.6); Potassium 4.7 mmol/L (3.5-5.1); Sodium 139 mmol/L (136-145)
[2024-09-07 06:44] LABS: #Basophils Less than 0.03 10x3/uL (0.0-0.2); %Basophils 0.2 % (0.0-1.0); %Eosinophils 2.8 % (0.0-10.0); %Lymphocytes 27.5 % (21.0-51.0); %Monocytes 10.2 % (0.0-10.0); %Neutrophils 59.1 % (42.0-75.0); Hematocrit 31.3 % (42.0-52.0); Hemoglobin 9.7 g/dL (14.0-18.0); Mean Corpuscular Hemoglobin 20.2 pg (27.0-31.0); Mean Corpuscular Volume 65.1 fL (78.0-98.0); Platelet Count 190 10x3/uL (130-400); RBC Distribution Width 16.9 % (11.5-14.5); Red Blood Cell (RBC) Count 4.81 mill/uL (4.70-6.10)
[2024-09-07] MEDS: FLU (Fluad Triv) TS24-25 (65UP)/MF59C/PF 45 MCG/0.5 ML Syringe IM ONE (08:11)
[2024-09-07 11:06] VITALS: TEMP 97.7
[2024-09-07 11:19] VITALS: BP 152/82
[2024-09-07] MEDS: Dextrose 10% in Water 1,000 ML IV SCH (12:36)
[2024-09-07 16:59] VITALS: BMI 20.2
== END 2024-09-07 17:21 | DRG 177 ==
LOC: ERS 19:25 → T4-B 23:41 → OBSVTOIN 09-04 17:50
PROVIDERS: ADMIT Internal Medicine; ATTEND Family Medicine
DX: J69.0 Pneumonitis due to inhalation of food and vomit (principal); G93.41 Metabolic encephalopathy; J96.00 Acute respiratory failure, unspecified whether with hypoxia or hypercapnia; I31.39 Other pericardial effusion (noninflammatory); M54.9 Dorsalgia, unspecified; R10.9 Unspecified abdominal pain; I12.9 Hypertensive chronic kidney disease with stage 1 through stage 4 chronic kidney disease, or unspecified chronic kidney disease; E11.22 Type 2 diabetes mellitus with diabetic chronic kidney disease; I48.0 Paroxysmal atrial fibrillation; N18.30 Chronic kidney disease, stage 3 unspecified; I25.10 Atherosclerotic heart disease of native coronary artery without angina pectoris; Z66 Do not resuscitate; F03.C0 Unspecified dementia, severe, without behavioral disturbance, psychotic disturbance, mood disturbance, and anxiety; E87.6 Hypokalemia; R33.9 Retention of urine, unspecified; E78.5 Hyperlipidemia, unspecified; Z51.5 Encounter for palliative care; D50.9 Iron deficiency anemia, unspecified; Z91.013 Allergy to seafood; Z95.0 Presence of cardiac pacemaker; Z86.73 Personal history of transient ischemic attack (TIA), and cerebral infarction without residual deficits; Z79.01 Long term (current) use of anticoagulants; Z79.82 Long term (current) use of aspirin; Z79.02 Long term (current) use of antithrombotics/antiplatelets; Z79.4 Long term (current) use of insulin; Z87.891 Personal history of nicotine dependence; Z79.899 Other long term (current) drug therapy; Z79.85 Long-term (current) use of injectable non-insulin antidiabetic drugs
CPT/HCPCS: 36415; 36416; 70450; 71260; 72125; 74177; 80048; 80053; 81001; 82550; 83690; 83735; 85025; 93306; 96374; 96375; 96376; G0378; J0295; J0456; J3475; J7030; J7042; J7050; Q9967